=== PATIENT | male | born 1950 | race Caucasian/White ===

== ENCOUNTER 2019-08-26 07:12 | Emergency (ER) | payer OTHER ==
[~2019-08-26] VITALS: Ht 172.7 cm; Wt 50.8 kg
--- NOTE | 2019-08-26 07:12 | NUR ---
Patient BIBA ALS accompanied by Mika SHEPPARD, transferred to bed 7. RN evaluating patient at bedside.
[2019-08-26 07:28] VITALS: BP 75/57
[2019-08-26] MEDS ORDERED: NACL 0.9% 1,000 ML IV ONE ×5 (07:30→09:20)
--- NOTE | 2019-08-26 07:34 | NUR ---
Dr. Mariscal is evaluating the patient at bedside.
[2019-08-26] MEDS ORDERED: DEXTROSE 50% 50 ML SYR IVP ONE (07:35)
--- NOTE | 2019-08-26 07:38 | NUR ---
BIBA BLS FOUND DOWN ON SIDE OF THE ROAD. CLOTHING WET, PATIENT VERY COLD TO TOUCH. AOX3, ANSWERS QUESTIONS APPROPRIATELY. PMH NON CONTRIBUTORY. WARM BLANKETS AND BEAR HUGGER APPLIED. THICK PURULENT NASAL DISCHARGE. TACHYCARDIC WITH REGULAR RHYTHM. PT PLACED ON BEDSIDE MONITOR. BED LOCKED & LOW; BEDRAILS UP X2.
--- NOTE | 2019-08-26 07:40 | NUR ---
FLU SWAB COLLECTED BY EMERGENCY SERVICES PROFESSIONAL
--- NOTE | 2019-08-26 07:49 | NUR ---
PROPERTY SPECIALIST AT BEDSIDE
--- NOTE | 2019-08-26 07:49 | NUR ---
TRIMMER SAWYER AT BEDSIDE
--- NOTE | 2019-08-26 07:53 | NUR ---
2L WARMED NS INFUSING THROUGH IVs
--- NOTE | 2019-08-26 08:06 | NUR ---
Blood Sugar: 204 Dr. Mariscal made aware.
--- NOTE | 2019-08-26 08:12 | NUR ---
EMT AT BEDSIDE FOR EKG
[2019-08-26 08:16] LABS: HEMATOCRIT 31.8 % (36-52); HEMOGLOBIN 10.9 g/dL (12.0-18.0); MEAN CORPUSCULAR HEMOGLOBIN 38 pg (27-31); MEAN CORPUSCULAR HGB CONC 34 g/dL (33-37); MEAN CORPUSCULAR VOLUME 110.9 fL (80-94); RED BLOOD CELL COUNT(AUTO) 2.86 MIL/uL (4.20-6.10); RED CELL DISTRIBUTION WIDTH 17.6 % (11.6-13.7); WHITE BLOOD COUNT (AUTO) 3.2 K/uL (4.8-10.8)
--- NOTE | 2019-08-26 08:37 | NUR ---
RECTAL TEMP 90.7, DR. ROSAS NOTIFED, ORDERED FOR WARM 1L NS BOLUS.
[2019-08-26 08:39] LABS: ALBUMIN 1.6 g/dL (3.4-5.0); ANION GAP 20.8 (8-16); CARBON DIOXIDE 26.7 mmol/L (21-32); CREATININE 1.5 mg/dL (0.6-1.3); TOTAL BILIRUBIN 3.2 mg/dL (0.0-1.0)
[2019-08-26 08:45] LABS: POTASSIUM 1.5 mmol/L (3.5-5.1)
[2019-08-26] MEDS ORDERED: VANCOMYCIN 1,000 MG in DEXTROSE 5% 250 ML IV ONE (08:50)
[2019-08-26] MEDS ORDERED: PIPERACILLIN/TAZOBACTAM 3.375 GM in DEXTROSE 5% 50 ML IV ONE (08:50)
[2019-08-26] MEDS ORDERED: KCL 20 MEQ/WATER INJ PREMIX 200 ML IV ONE ×2 (08:50→09:20)
--- NOTE | 2019-08-26 08:54 | NUR ---
WALKED URINE TO LAB
[2019-08-26] MEDS ORDERED: PIPERACILLIN/TAZOBACTAM 3.375 GM VIAL IV ONE (08:55)
[2019-08-26 08:57] LABS: APPEARANCE,URINE CLOUDY (CLEAR); BILIRUBIN,URINE 1+ (NEGATIVE); BLOOD, URINE 2+ (NEGATIVE); COLOR,URINE AMBER (YELLOW); LEUKOCYTE ESTERASE ,URINE 1+ (NEGATIVE); NITRITE, URINE NEGATIVE (NEGATIVE); UGLUCOSE NEGATIVE (NEGATIVE)
--- NOTE | 2019-08-26 09:13 | NUR ---
PT REMAINS AOX3
[2019-08-26 09:16] LABS: RBC,URINE NONE SEEN /HPF (0-5); WBC,URINE 0-5 /HPF (0-5)
[2019-08-26 09:21] LABS: LYMPHOCYTES % (MANUAL) 15 % (20-46); MONOCYTES % (MANUAL) 2 % (5-12)
[2019-08-26 09:22] LABS: BASOPHILS % (MANUAL) 0 % (0-2); EOSINOPHILS % (MANUAL) 1 % (0-4)
[2019-08-26 09:23] LABS: PLATELET COUNT (AUTO) 45 K/uL (140-450)
[2019-08-26] MEDS ORDERED: MAG SULF 2000 MG/WATER PREMIX 100 ML IV ONE (09:25)
[2019-08-26] MEDS ORDERED: VANCOMYCIN PER PHARMACY MC PRN (09:30)
[2019-08-26] MEDS ORDERED: ALBUTEROL SULFATE/IPRATROPIU 3 ML SOL IH PRN (09:30)
[2019-08-26 09:32] LABS: BARBITURATE, URINE NEGATIVE ng/ml (NEG <=200); BENZODIAZEPINE, URINE NEGATIVE ng/mL (NEG <=200); CANNABINOID, URINE NEGATIVE ng/mL (NEG <=50); COCAINE, URINE NEGATIVE ng/mL (NEG <=300); OPIATE, URINE NEGATIVE ng/mL (NEG <=2000); PHENCYCLIDINE SCREEN,URINE NEGATIVE ng/mL (NEG <=25)
[2019-08-26] MEDS ORDERED: ACETAMINOPHEN 325 MG TAB PO PRN (09:35)
[2019-08-26] MEDS ORDERED: DOCUSATE SODIUM 100 MG GELCAP PO PRN (09:35)
[2019-08-26] MEDS ORDERED: ONDANSETRON 4 MG/2 ML VIAL IM/IVP PRN (09:35)
[2019-08-26] MEDS ORDERED: LORazepam 2 MG/ML VIAL IVP ONE ×2 (09:45→12:25)
--- NOTE | 2019-08-26 09:46 | NUR ---
Dr. Meza is evaluating the patient at bedside.
[2019-08-26] MEDS ORDERED: VANCOMYCIN 1,000 MG VIAL ONE (09:49)
--- NOTE | 2019-08-26 09:55 | NUR ---
PER DR ROSAS KEEP PT HERE IN ER UNTIL AFTER CT HEAD
--- NOTE | 2019-08-26 09:56 | NUR ---
NOTIFIED CT DEPT THAT PT IS READY FOR CT HEAD
[2019-08-26] MEDS ORDERED: POTASSIUM CHLORIDE 10 MEQ TABER PO SCH ×2 (10:00→10:15)
--- NOTE | 2019-08-26 10:04 | NUR ---
PT TO CT SCAN VIA [facility]
[2019-08-26] MEDS ORDERED: DEXTROSE 50% 50 ML SYR IVP PRN (10:20)
[2019-08-26] MEDS ORDERED: INSULIN LISPRO SLIDING SCALE 100 UNITS/ML VIAL SUBQ PRN (10:20)
[2019-08-26] MEDS ORDERED: LORazepam 2 MG/ML VIAL IM/IVP PRN (10:25)
[2019-08-26 10:26] LABS: PROTHROMBIN TIME 18.4 secs (10.8-13.4)
--- NOTE | 2019-08-26 10:31 | NUR ---
PER DR ROSAS KEEP PATIENT HERE IN ER UNTIL CT HEAD RESULTS
[2019-08-26] MEDS ORDERED: NACL 0.9% 1,000 ML IV SCH (10:35)
[2019-08-26] MEDS ORDERED: ALBUMIN HUMAN 25% 50 ML IV SCH (10:45)
[2019-08-26 10:49] LABS: FREE T4 (FREE THYROXINE) 1.28 ng/dL (0.76-1.46); PHOSPHORUS 3.4 mg/dL (2.5-4.9); THYROID STIMULATING HORMONE 7.28 uIU/mL (0.34-3.74)
[2019-08-26 11:02] LABS: MAGNESIUM 0.8 mg/dL (1.8-2.4)
[2019-08-26] MEDS ORDERED: MAG SULF 2000 MG/WATER PREMIX 50 ML IV ONE ×2 (11:10)
--- NOTE | 2019-08-26 11:15 | NUR ---
pt self d/c L AC 22, iv abx infusing through R AC 18. Dr Mariscal aware unable to infuse Mg Amandeep at this time.
[2019-08-26] MEDS ORDERED: POTASSIUM CHLORIDE 10 MEQ TABER PO ONE (11:20)
[2019-08-26] MEDS ORDERED: MAGNESIUM OXIDE 400 MG TAB PO ONE (11:20)
--- NOTE | 2019-08-26 11:29 | NUR ---
picc line rn at bedside Addendum: 08/26/19 at 1157 by TAHIRA PICC LINE TEO MALLOY
[2019-08-26] MEDS ORDERED: BLOOD GLUCOSE MONITORING 1 DEV DEV FS SCH (11:30)
--- NOTE | 2019-08-26 11:57 | NUR ---
garage door technician at bedside.
[2019-08-26] MEDS ORDERED: LORazepam 1 MG TAB PO SCH (12:00)
--- NOTE | 2019-08-26 12:02 | NUR ---
PER PICC LINE MELLISSA BRUCE, JAKY TO USE PICC LINE UA
[2019-08-26 12:05] LABS: ANION GAP 13.1 (8-16); CARBON DIOXIDE 30.8 mmol/L (21-32)
[2019-08-26 12:07] LABS: PHOSPHORUS 1.9 mg/dL (2.5-4.9)
--- NOTE | 2019-08-26 12:16 | NUR ---
*S.T. NOTE* Order for ST Bedside swallow eval received, chart reviewed. Per Amalia BRUCE, pt not to be admitted, but transferred to another hospital due to acute SAH. She reported this clinician can disregard order at this time. If pt is admitted to [facility], please reorder services. Thank you.
[2019-08-26 12:18] LABS: MAGNESIUM 0.7 mg/dL (1.8-2.4); POTASSIUM 1.9 mmol/L (3.5-5.1)
--- NOTE | 2019-08-26 12:22 | NUR ---
REPORT TO APOLINAR MEDINA SUGARCREEK ([phone])
[2019-08-26] MEDS ORDERED: LORazepam 2 MG/ML VIAL ONE (12:23)
[2019-08-26 12:39] VITALS: BP 94/55
--- NOTE | 2019-08-26 12:39 | NUR ---
REPORT GIVEN TO [facility]
--- NOTE | 2019-08-26 12:40 | NUR ---
Patient to be transferred to [facility]. Is being transferred due to SEPSIS, PNA, UTI, SUBARACHNOID BLEED. Receiving facility has accepting physician and available space. ER physician has signed transfer form. Patient or responsible green party has agreed to transfer and signed form. Patient belongings inventoried and will be sent with patient. Copy of nursing notes, lab reports, EKG, Physicians Orders and X-rays to be sent with patient. Report called to APOLINAR at receiving facility. [facility] AT BEDSIDE.
[2019-08-26 12:51] LABS: CREATININE 1.2 mg/dL (0.6-1.3)
[2019-08-27 06:23] LABS: ANION GAP 10.1 (8-16); CREATININE 1.2 mg/dL (0.6-1.3)
[2019-08-27 06:39] LABS: POTASSIUM 2.1 mmol/L (3.5-5.1)
== END 2019-08-26 13:08 | disposition short-term general hospital (02) ==
LOC: MED 07:12 → UNDOADMIN 09:42 → MIC 09:42 → MED 13:08
DX: S06.6X0A Traumatic subarachnoid hemorrhage without loss of consciousness, initial encounter (principal); T68.XXXA Hypothermia, initial encounter; J80 Acute respiratory distress syndrome; E16.2 Hypoglycemia, unspecified; E87.6 Hypokalemia; D61.818 Other pancytopenia; R74.0 Nonspecific elevation of levels of transaminase and lactic acid dehydrogenase [LDH]; F10.10 Alcohol abuse, uncomplicated; N39.0 Urinary tract infection, site not specified; F10.20 Alcohol dependence, uncomplicated; E83.42 Hypomagnesemia; Z59.0 Homelessness; Y90.9 Presence of alcohol in blood, level not specified; W18.30XA Fall on same level, unspecified, initial encounter; Y93.89 Activity, other specified; Y92.89 Other specified places as the place of occurrence of the external cause; Y99.8 Other external cause status
CPT/HCPCS: 36415; 70450; 71045; 76937; 80048; 80053; 80305; 81001; 82150; 82550; 82553; 83036; 83605; 83690; 83735; 83880; 84100; 84134; 84439; 84443; 84484; 85025; 85610; 85730; 87040; 87086; 87804; 93005; 96365; 96366; 96368; 96375; 99291; 99292; C1758; G0482; J1815; J2060; J2543; J3370; J3475; J3480; J7030; J7060; Q0092; 99285